=== PATIENT | female | born 1945 | race Caucasian/White ===

== ENCOUNTER 2019-06-02 15:10 | Observation (INO) ==
--- NOTE | 2019-06-02 17:05 | DR.GENAD ---
HPI Time Seen Time Seen by Provider: 06/02/19 17:05 PCP Primary Care Physician: CAROLYN COLBERT (DR. SLADE) HPI Comment HPI Comment: PATIENT IS 74 YEAR OLD WHITE FEMALE HERE IN THE EMERGENCY ROOM WITH LOWER EXTREMITY EDEMA, WEIFGR GAIN AND LEG PAIN. SYMPTOMS PROGRESSIVE FOR 3 MONTHS. SYMPTOMS WORSE PAST FEW DAYS. HAVING DYSPNEA ON EXERTION. HISTORY CHF. PATIENT HAVE 6/10 PAIN IN LEGS DOWN THE FEET. SIMILAR PAIN PREVIOEUSLY BUT WORSE TODAY. NO FEVER OR DYSURIA. HAVE HAD GATRIC BYPASS SURGERY IN THE PAST. Complaint/Symptoms Chief Complaint Doctors Comments: WEIGHT GAIN AND SWELLING OF LEGS TIMES 3 MONTHS. Chief Complaint:: FAMILY STATES THAT CAROLYN COLBERT SPOKE WITH DR. SLADE AND DR. SLADE STATES FOR PATIENT TO COME TO THE ER FOR ADMISSION. PT STATES SHE HAS GAIN WEIGHT, FEET AND LEGS ARE SWOLLEN. Self Treatment fo Chief Complaint: LASIX 20MG Nurses notes reviewed Nurses Notes Review: Yes Source History Provided: Patient Mode of Arrival Mode of Arrival: Wheelchair Timing Onset of Chief Complaint: 03/04/19 Came on: Gradually Duration Duration: Constant Duration: Weeks Severity Severity: Moderate Modifying Factors Improves:: [place] Associated Signs and Symptoms Associated Signs and Symptoms: MOVEMENT Other History Other History: RESTING. PMH PMH Past Medical History: Yes Past Medical History: CVA, Diabetes, Dyslipidemia and Seizures Past Medical History Comment: ESRD Past Surgical History: Yes Surgical History: Appendectomy, Bowel Resection, , Cholecystectomy and Other Past Surgical History Comment: GASTRIC BYPASS Family History History of Family Medical Conditions: Yes Family Medical History: Diabetes Mellitus, Cancer, [place], Coronary Artery Disease, Heart Failure, Sudden Cardiac and Hypertension Social History Does patient currently use any type of tobacco product: No Have you used tobacco products in the last 12 months: No Does any household member use tobacco: No Alcohol Use: None Do you use any recreational Drugs:: No Lives With: Other Lives Where: Home infectious screening In the last 2 months have you had wt loss of >10#?: NO Have you had fever, night sweats or hemotysis?: No Have you traveled outside the country in the last 6 months?: No Isolation: Standard ROS Review of Systems Constitutional: No Symptoms Reported, See HPI, Weakness and Fatigue Eyes: No Symptoms Reported and See HPI; negative Blurred Vision and Photophobia ENTM: No Symptoms Reported; negative Ear Pain, Nose Discharge, Nose Congestion and Throat Pain Respiratoy: See HPI and Short of Breath; negative Wheezing Cardiovascular: See HPI and Edema; negative Chest Pain Gastrointestinal/Abdominal: No Symptoms Reported and See HPI; negative Abdominal Pain, Constipation, Diarrhea, Nausea and Vomiting Genitourinary: No Symptoms Reported, See HPI, Dysuria, Frequency and Hematuria Neurological: See HPI and Weakness; negative Headache and Dizziness Musculoskeletal: See HPI and Leg (PAIN AND SWELLING LEGS.); negative Back Pain and Muscle Pain Integumentary: See HPI and Other (EDEMA LOWER EXTREMITIES.); negative Change in Color, Rash and Juandice Hematologic/Lymphatic: No Symptoms Reported and See HPI; negative Easy Bruising and Swollen Glands Endocrine: No Symptoms Reported and See HPI; negative Increased Thirst and Increased Urine Psychiatric: No Symptoms Reported and See HPI All Other Systems: Reviewed and Negative PE Vital Signs Vitals: Temperature 97.3 F Pulse Rate 84 Respiratory Rate 20 Blood Pressure [Right Arm] 155/68 Blood Pressure 143/73 O2 Sat by Pulse Oximetry 100 General Limitations: No Limitations General Appearance: Alert and In No Apparent Distress Head Head Exam: Normal Inspection and Atraumatic Eyes Eye exam: Normal Appearance and PERRL; negative Scleral Icterus and Conjunctival Injection ENT ENT Exam: Normal Exam, Normal Oropharynx, Normal External Ear Exam and TM's Normal Bilaterally External Ear Exam: Normal External Inspection; negative Mastoid Tenderness, Pain with Movement and External Tenderness TM/Canal Exam: Bilateral: Normal Nose Exam: Normal Nose Exam Mouth Exam: Normal Inspection Throat Exam: Normal Inspection; negative Tonsillar Erythema, Tonsillomegaly and Tonsillar Exudate Neck Neck Exam: Normal Inspection and Trachea Midline; negative Tenderness and Lymphadenopathy Chest Chest Inspection: Normal Inspection and Symmetric Chest Wall Rise; negative Tenderness Respiratory Respiratory Exam: Normal Lung Sounds Bilat; negative Accessory Muscle Use, Chest Wall Tenderness and Respiratory Distress Respiratory Exam: Bilateral: Rhonchi and Lower: Rhonchi Cardiovascular Cardiovascular Exam: Regular Rate, Normal Rhythm, Normal Heart Sounds, Systolic Murmur, Diastolic Murmur and +S3 Abdominal Exam Abdominal Exam: Normal Inspection, Normal Bowel Sounds and Soft; negative Tenderness Extremities Extremities Exam: Normal Inspection, Tenderness, Normal Capillary Refill and Edema; negative Calf Tenderness Back Back Exam: Normal Inspection; negative (R) CVA Tenderness and (L) CVA Tenderness Neurologic Neurological Exam: Alert and Oriented X3; negative Motor Sensory Deficit Psychiatric Psychiatric Exam: Normal Affect and Normal Mood Skin Skin Exam: Erythema and Other (EDEMA LOWER EXTREMITY.) MDM Differential Diagnosis Differential Diagnosis: CHF, EDEMA, WEIGHT GAIN, ARTHRTIS, DVT. COURSE Treatment Treatment: SEE ORDERS. LASIX 60MG IV. Consultation Consultation Comments: DR. SLADE WILL ADMIT PATIENT. Education/Counseling Education/Counseling: Patient Educated On: Diagnosis and Needs for Follow Up ROR Labs Reviewed Laboratory Results Reviewed?: Yes Result Diagrams: 06/04/19 04:51 06/04/19 04:51 Laboratory: WBC 3.2 X10^3/uL (3.6-10.0) L 06/02/19 17:25 RBC 3.37 X10^6/uL (3.5-5.4) L 06/02/19 17:25 Hgb 10.8 g/dL (12.0-16.0) L 06/02/19 17:25 Hct 32.3 % (36.0-47.0) L 06/02/19 17:25 MCV 96.1 fL (80.0-100.0) 06/02/19 17:25 MCH 32.0 pg (27.0-34.0) 06/02/19 17:25 MCHC 33.3 g/dL (33.0-35.0) 06/02/19 17:25 RDW 13.4 % (11.6-16.5) 06/02/19 17:25 Plt Count 130 X10^3/uL (150.0-450.0) L 06/02/19 17:25 MPV 7.5 fL (7.4-11.0) 06/02/19 17:25 Neut % (Auto) 58.6 % (42.0-75.0) 06/02/19 17:25 Lymph % (Auto) 26.9 % (21.0-51.0) 06/02/19 17:25 Sawyer % (Auto) 9.7 % (0.0-13.0) 06/02/19 17:25 Eos % (Auto) 3.9 % (0.9-2.9) H 06/02/19 17:25 Baso % (Auto) 0.9 % (0.2-1.0) 06/02/19 17:25 Neut # (Auto) 1.9 x10^3/uL (2.2-4.8) L 06/02/19 17:25 Lymph # (Auto) 0.9 X10^3/uL (1.3-2.9) L 06/02/19 17:25 Sawyer # (Auto) 0.3 x10^3/uL (0.3-0.8) 06/02/19 17:25 Eos # (Auto) 0.1 x10^3/uL (0.0-0.2) 06/02/19 17:25 Baso # (Auto) 0.0 X10^3/uL (0.0-0.1) 06/02/19 17:25 Absolute Nucleated RBC 0.2 /100WBC 06/02/19 17:25 Sodium 142 mmol/L (136-145) 06/02/19 17:25 Corrected Sodium TNP 06/02/19 17:25 Potassium 5.0 mmol/L (3.5-5.1) 06/02/19 17:25 Chloride 109 mmol/L (98-107) H 06/02/19 17:25 Carbon Dioxide 24.1 mmol/L (21-32) 06/02/19 17:25 BUN 42 mg/dL (7-18) H 06/02/19 17:25 Creatinine 2.07 mg/dL (0.55-1.02) H 06/02/19 17:25 Est GFR (MDRD) Af Amer 30 (>60) L 06/02/19 17:25 Est GFR (MDRD) Non-Af 25 (>60) L 06/02/19 17:25 Glucose 88 mg/dL (65-99) 06/02/19 17:25 Calcium 8.9 mg/dL (8.5-10.1) 06/02/19 17:25 Corrected Calcium 9.7 mg/dL (8.5-10.1) 06/02/19 17:25 Total Bilirubin 0.40 mg/dL (0.2-1.0) 06/02/19 17:25 AST 49 Units/L (15-37) H 06/02/19 17:25 ALT 30 Units/L (12-78) 06/02/19 17:25 Alkaline Phosphatase 167 Units/L (46-116) H 06/02/19 17:25 Creatine Kinase 66 Units/L (26-192) 06/02/19 17:25 CK-MB (CK-2) 1.0 ng/mL (0-4.0) 06/02/19 17:25 CK/CKMB % Calc 1.5 % (<4) 06/02/19 17:25 Troponin I < 0.02 ng/mL (0-1.5) 06/02/19 17:25 B-Natriuretic Peptide 95.3 pg/mL (0-79) H 06/02/19 17:25 Total Protein 7.1 g/dL (6.4-8.2) 06/02/19 17:25 Albumin 3.0 g/dL (3.4-5.0) L 06/02/19 17:25 Globulin 4.1 g/dL (2.5-4.5) 06/02/19 17:25 Albumin/Globulin Ratio 0.7 Ratio (1.1-2.1) L 06/02/19 17:25 XRAY XRAY Interpreted by: Radiologist XRAY Findings: REPORT NOTED AND DISCUSSES WITH PATIENT. EKG Rate: 63 Rhythm: Junctional ST: Old and Infarct (POST.) Opioid Opioid Risk Tool Age (Ryne box if 16-45): No Total: 0 Total Score Risk Category: Low Risk Copyright: Sergei MURILLO predicting aberrant behaviors Diagnosis Discharge Problem: Acute renal insufficiency Edema Qualifiers: Edema type: localized Qualified Code(s): R60.0 - Localized edema CHF (congestive heart failure) Qualifiers: Heart failure type: combined systolic and diastolic Heart failure chronicity: acute on chronic Qualified Code(s): I50.43 - Acute on chronic combined systolic (congestive) and diastolic (congestive) heart failure Anemia Qualifiers: Anemia type: unspecified type Qualified Code(s): D64.9 - Anemia, unspecified Instructions Instructions: Fall Prevention in the Home, Adult, Annp-ct-Dohs Preventing Peripheral Vascular Disease Peripheral Vascular Disease, Oyce-gz-Erbd Stroke Prevention, [id number] Type 2 Diabetes Mellitus, Self Care, Adult, [id number] Acute Kidney Injury, Adult Hypertension, [id number] Forms: Patient Portal
[2019-06-02 17:42] LABS: BASOPHILS % (AUTO) 0.9 % (0.2-1.0); EOSINOPHILS # (AUTO) 0.1 x10^3/uL (0.0-0.2); EOSINOPHILS % (AUTO) 3.9 % (0.9-2.9); HEMATOCRIT 32.3 % (36.0-47.0); HEMOGLOBIN 10.8 g/dL (12.0-16.0); LYMPHOCYTES # (AUTO) 0.9 X10^3/uL (1.3-2.9); LYMPHOCYTES % (AUTO) 26.9 % (21.0-51.0); MEAN CORPUSCULAR HGB CONC 33.3 g/dL (33.0-35.0); MEAN CORPUSCULAR VOLUME 96.1 fL (80.0-100.0); MEAN PLATELET VOLUME 7.5 fL (7.4-11.0); MONOCYTES # (AUTO) 0.3 x10^3/uL (0.3-0.8); MONOCYTES % (AUTO) 9.7 % (0.0-13.0); NEUTROPHILS # (AUTO) 1.9 x10^3/uL (2.2-4.8); NEUTROPHILS % (AUTO) 58.6 % (42.0-75.0); PLATELET COUNT 130 X10^3/uL (150.0-450.0); RED BLOOD COUNT 3.37 X10^6/uL (3.5-5.4); RED CELL DISTRIBUTION WIDTH 13.4 % (11.6-16.5); WHITE BLOOD COUNT 3.2 X10^3/uL (3.6-10.0)
[2019-06-02 17:57] LABS: BLOOD UREA NITROGEN 42 mg/dL (7-18); CALCIUM 8.9 mg/dL (8.5-10.1); CARBON DIOXIDE 24.1 mmol/L (21-32); CHLORIDE 109 mmol/L (98-107); CREATININE 2.07 mg/dL (0.55-1.02); SODIUM 142 mmol/L (136-145); TROPONIN I < 0.02 ng/mL (0-1.5); eGFR NON BLACK RACES 25 (>60)
--- NOTE | 2019-06-02 17:58 | RAD ---
Exam: Portable chestTest all when History: 74-year-old female with shortness of breath. Comparison: Previous chest radiograph from 10/20/2016 Findings: Mild cardiomegaly is seen. No significant vascular congestion however. Lungs are clear with no infiltrate or significant effusion on either side. Visualized aspect of the bony thorax is normal as well. Impression: No acute cardiopulmonary abnormality is seen on this exam Reported By:
[2019-06-02 18:01] LABS: ALANINE AMINOTRANSFERASE 30 Units/L (12-78); ALKALINE PHOSPHATASE 167 Units/L (46-116); ASPARTATE AMINO TRANSFERASE 49 Units/L (15-37); CKMB % 1.5 % (<4); COR CA(FOR HYPOALB) 9.7 mg/dL (8.5-10.1); CREATINE KINASE 66 Units/L (26-192); TOTAL PROTEIN 7.1 g/dL (6.4-8.2)
[2019-06-02] MEDS ORDERED: LASIX ONE (18:33)
[2019-06-02] MEDS ORDERED: LASIX IVP ONE ×2 (18:33→18:35)
[2019-06-02] MEDS: ZANTAC PO SCH (20:39)
[2019-06-02 20:45] VITALS: BMI 42.9
[2019-06-02] MEDS ORDERED: PATIENT'S HOME MEDICATION (Escitalopram Oxalate [Lexapro] 20 MG) PO SCH (21:00)
[2019-06-02] MEDS: NORCO 5/325 MG TAB PO SCH (21:08)
[2019-06-02] MEDS: DITROPAN TAB 5 MG PO SCH (21:08)
[2019-06-02] MEDS: ARICEPT TAB 10 MG PO SCH (21:09)
[2019-06-02] MEDS: RisperDAL TAB 1 MG PO SCH (21:09)
[2019-06-02] MEDS: LAMOTRIGINE 25 MG PO SCH (21:10)
[2019-06-02] MEDS ORDERED: LEXAPRO ONE (21:12)
[2019-06-02] MEDS: KLONOPIN TAB 0.5 MG PO PRN (21:13)
[2019-06-02] MEDS: LEXAPRO PO SCH (21:13)
[2019-06-03 05:27] LABS: BASOPHILS % (AUTO) 0.9 % (0.2-1.0); EOSINOPHILS # (AUTO) 0.2 x10^3/uL (0.0-0.2); EOSINOPHILS % (AUTO) 5.5 % (0.9-2.9); HEMATOCRIT 30.4 % (36.0-47.0); HEMOGLOBIN 10.3 g/dL (12.0-16.0); LYMPHOCYTES % (AUTO) 32.4 % (21.0-51.0); MEAN CORPUSCULAR HEMOGLOBIN 32.8 pg (27.0-34.0); MEAN CORPUSCULAR HGB CONC 33.8 g/dL (33.0-35.0); MEAN CORPUSCULAR VOLUME 97.1 fL (80.0-100.0); MEAN PLATELET VOLUME 7.8 fL (7.4-11.0); MONOCYTES # (AUTO) 0.3 x10^3/uL (0.3-0.8); MONOCYTES % (AUTO) 11.2 % (0.0-13.0); NEUTROPHILS # (AUTO) 1.5 x10^3/uL (2.2-4.8); PLATELET COUNT 117 X10^3/uL (150.0-450.0); RED BLOOD COUNT 3.13 X10^6/uL (3.5-5.4); RED CELL DISTRIBUTION WIDTH 13.1 % (11.6-16.5)
[2019-06-03] MEDS: NORCO 5/325 MG TAB PO SCH ×3 (05:34→21:27)
[2019-06-03 05:38] LABS: ALANINE AMINOTRANSFERASE 37 Units/L (12-78); ALBUMIN 2.8 g/dL (3.4-5.0); ALKALINE PHOSPHATASE 161 Units/L (46-116); ASPARTATE AMINO TRANSFERASE 64 Units/L (15-37); BLOOD UREA NITROGEN 41 mg/dL (7-18); CALCIUM 8.7 mg/dL (8.5-10.1); CARBON DIOXIDE 28.2 mmol/L (21-32); CHLORIDE 108 mmol/L (98-107); COR CA(FOR HYPOALB) 9.7 mg/dL (8.5-10.1); CREATININE 2.12 mg/dL (0.55-1.02); SODIUM 145 mmol/L (136-145); TOTAL PROTEIN 6.6 g/dL (6.4-8.2); eGFR NON BLACK RACES 24 (>60)
[2019-06-03] MEDS ORDERED: LEXAPRO ONE (08:58)
[2019-06-03] MEDS: ASPIRIN EC 81 MG PO SCH (09:30)
[2019-06-03] MEDS: RisperDAL TAB 1 MG PO SCH ×2 (09:30→20:32)
[2019-06-03] MEDS: ZANTAC PO SCH (09:30)
[2019-06-03] MEDS: DITROPAN TAB 5 MG PO SCH ×2 (09:30→20:33)
[2019-06-03] MEDS: SYNTHROID 100 mcg TAB PO SCH (09:30)
[2019-06-03] MEDS: PROTONIX TAB 40 MG PO SCH (09:30)
[2019-06-03] MEDS: LAMOTRIGINE 25 MG PO SCH ×2 (09:31→20:34)
[2019-06-03] MEDS: LEXAPRO PO SCH ×2 (09:31→20:31)
[2019-06-03] MEDS: KLONOPIN TAB 0.5 MG PO PRN ×2 (09:34→20:30)
[2019-06-03 12:27] LABS: BILIRUBIN,URINE NEGATIVE (NEGATIVE); BLOOD/HEMOGLOBIN,URINE 3+ (NEGATIVE); GLUCOSE, URINE NEGATIVE (NEGATIVE); KETONES,URINE NEGATIVE (NEGATIVE); LEUKOCYTE ESTERASE ,URINE 2+ (NEGATIVE); NITRITES,URINE NEGATIVE (NEGATIVE); PROTEIN,URINE NEGATIVE (NEGATIVE); UROBILINOGEN,URINE NORMAL (NORMAL)
[2019-06-03] MEDS: ALBUMIN HUMAN 25%- 100 ML 100 ML IV SCH (12:35)
[2019-06-03 12:36] LABS: APPEARANCE,URINE SLIGHTLY HAZY (CLEAR); COLOR,URINE STRAW (YELLOW); SQUAMOUS EPITHELIAL CELL,UR FEW /HPF (NEGATIVE)
[2019-06-03] MEDS: COZAAR PO SCH (12:36)
[2019-06-03] MEDS: LOVENOX INJ 30 MG SYR SC SCH (12:36)
[2019-06-03 12:37] LABS: BACTERIA,URINE 1+ /HPF (NEGATIVE)
[2019-06-03] MEDS ORDERED: SNACK - Diabetic Appropriate PO SCH (20:00)
[2019-06-03] MEDS: MACROBID CAP 100 MG EXT REL PO SCH (20:30)
[2019-06-03] MEDS: ARICEPT TAB 10 MG PO SCH (20:31)
[2019-06-04] MEDS: NORCO 5/325 MG TAB PO SCH (05:07)
[2019-06-04 05:22] LABS: BASOPHILS % (AUTO) 0.7 % (0.2-1.0); EOSINOPHILS # (AUTO) 0.1 x10^3/uL (0.0-0.2); HEMOGLOBIN 9.7 g/dL (12.0-16.0); LYMPHOCYTES # (AUTO) 0.8 X10^3/uL (1.3-2.9); LYMPHOCYTES % (AUTO) 30.1 % (21.0-51.0); MEAN CORPUSCULAR HEMOGLOBIN 32.5 pg (27.0-34.0); MEAN CORPUSCULAR HGB CONC 33.6 g/dL (33.0-35.0); MEAN CORPUSCULAR VOLUME 96.8 fL (80.0-100.0); MONOCYTES # (AUTO) 0.3 x10^3/uL (0.3-0.8); MONOCYTES % (AUTO) 10.8 % (0.0-13.0); NEUTROPHILS # (AUTO) 1.4 x10^3/uL (2.2-4.8); NEUTROPHILS % (AUTO) 53.4 % (42.0-75.0); PLATELET COUNT 108 X10^3/uL (150.0-450.0); WHITE BLOOD COUNT 2.6 X10^3/uL (3.6-10.0)
[2019-06-04 05:32] LABS: ALANINE AMINOTRANSFERASE 58 Units/L (12-78); ALBUMIN 2.9 g/dL (3.4-5.0); ALKALINE PHOSPHATASE 173 Units/L (46-116); ASPARTATE AMINO TRANSFERASE 82 Units/L (15-37); BLOOD UREA NITROGEN 41 mg/dL (7-18); CALCIUM 8.6 mg/dL (8.5-10.1); CARBON DIOXIDE 26.7 mmol/L (21-32); CHLORIDE 107 mmol/L (98-107); COR CA(FOR HYPOALB) 9.5 mg/dL (8.5-10.1); CREATININE 1.95 mg/dL (0.55-1.02); SODIUM 142 mmol/L (136-145); TOTAL PROTEIN 6.2 g/dL (6.4-8.2); eGFR NON BLACK RACES 27 (>60)
[2019-06-04] MEDS: ALBUMIN HUMAN 25%- 100 ML 100 ML IV SCH (08:57)
[2019-06-04] MEDS: ZANTAC PO SCH (09:10)
[2019-06-04] MEDS: LEXAPRO PO SCH (09:11)
[2019-06-04] MEDS: RisperDAL TAB 1 MG PO SCH (09:11)
[2019-06-04] MEDS: SYNTHROID 100 mcg TAB PO SCH (09:11)
[2019-06-04] MEDS: PROTONIX TAB 40 MG PO SCH (09:12)
[2019-06-04] MEDS: DITROPAN TAB 5 MG PO SCH (09:12)
[2019-06-04] MEDS: KLONOPIN TAB 0.5 MG PO PRN (09:12)
[2019-06-04] MEDS: MACROBID CAP 100 MG EXT REL PO SCH (09:12)
[2019-06-04] MEDS: ASPIRIN EC 81 MG PO SCH (09:13)
[2019-06-04] MEDS: LOVENOX INJ 30 MG SYR SC SCH (09:13)
[2019-06-04] MEDS: COZAAR PO SCH (09:13)
[2019-06-04] MEDS: LAMOTRIGINE 25 MG PO SCH (09:55)
[2019-06-04 12:32] VITALS: BP 154/76
== END 2019-06-04 12:10 | disposition home health service (06) ==
LOC: ER 15:16 → MED/SURG 15:16
PROVIDERS: ADMIT Obstetrics & Gynecology Obstetrics; ATTEND Obstetrics & Gynecology Obstetrics
DX: N18.9 Chronic kidney disease, unspecified; R60.0 Localized edema; I12.0 Hypertensive chronic kidney disease with stage 5 chronic kidney disease or end stage renal disease; I35.0 Nonrheumatic aortic (valve) stenosis; E78.2 Mixed hyperlipidemia; F41.8 Other specified anxiety disorders; R94.31 Abnormal electrocardiogram [ECG] [EKG]; E11.65 Type 2 diabetes mellitus with hyperglycemia; R26.89 Other abnormalities of gait and mobility; R06.2 Wheezing; E03.8 Other specified hypothyroidism; R63.5 Abnormal weight gain; G40.909 Epilepsy, unspecified, not intractable, without status epilepticus; I87.8 Other specified disorders of veins
CPT/HCPCS: 36415; 71010; 71045; 80053; 81001; 82550; 82553; 83735; 83880; 84484; 85025; 87086; 93005; 93306; 94760; 96365; 96374; 97162; 97167; 97535; 99284; A4216; A4222; P9047; G0378; J1650; J1940